=== PATIENT | male | born 1995 | race Caucasian/White ===

== ENCOUNTER 2017-02-18 23:15 | Emergency (ER) | payer BC, OTHER ==
[~2017-02-18] VITALS: Ht 177.8 cm; Wt 77.1 kg
--- NOTE | 2017-02-18 23:56 | ED General ---
General Chief Complaint: Chest Wall/Rib Pain Stated Complaint: CP X 7 DAYS,LEFT ARM PAIN Source of Information: Patient History of Present Illness Time Seen by Provider: 23:25 Initial Comments C/O "CHEST PAINS" X 1 WEEK, BEGAN TONIGHT AROUND 2029 WHILE SITTING--HAD JUST EATEN PIZZA PRIOR TO ONSET OF PAIN TONIGHT C/O "[place]" FOR A COUPLE OF WEEKS STATES ARMS FEEL COOL AND TINGLY STATES HIS RIGHT UPPER LEG HAS BEEN HURTING--ANTERIOR ASPECT OF RIGHT THIGH-- NOT HURTING NOW C/O SHORTNESS OF BREATH/HURTS TO BREATHE OVER BILATERAL BREAST AREA HAS CHRONIC NON-PRODUCTIVE COUGH AND IS UNCHANGED FROM NORMAL WAS SEEN AT [facility] LAST WEEK FOR URI SYMPTOMS--FINISHED UNKNOWN ANTIBIOTIC TODAY (DOXYCYCLINE + PREDNISONE PER MED RECONCILIATION) --STATES THOSE SYMPTOMS ARE GONE NO FEVER, SWEATS OR CHILLS NO SWELLING IN LEGS/ FEET OR PAIN IN CALVES. NO PROLONGED SITTING /TRAVEL, ETC. NO HISTORY OF SIMILAR PCP: [facility] Allergies and Home Medications Allergies Coded Allergies: No Known Drug Allergies (Unverified , 02/19/17) Home Medications Methylprednisolone 4 Mg Tab.ds.pk, 4 MG PO UD, #1 Prescribed by: MAXIMILIAN DUKES on 02/19/17 0103 Pantoprazole Sodium 40 Mg Tablet.dr, 40 MG PO DAILY, #15 Prescribed by: MAXIMILIAN DUKES on 02/19/17 0103 Sucralfate 1 Gm/10 Ml Oral.susp, 1 GM PO QID AC AND HS, #400 Prescribed by: MAXIMILIAN DUKES on 02/19/17 0103 Constitutional: no symptoms reported, No chills, No diaphoresis, No dizziness, No fever EENTM: no symptoms reported, see HPI Respiratory: see HPI, cough, short of breath Cardiovascular: see HPI, chest pain, No edema, No palpitations, No syncope, No vascular heart diseas Gastrointestinal: see HPI, No abdominal pain, No dysphagia, No hematemesis, heartburn, No loss of appetite, No melena, No nausea, No vomiting Genitourinary: no symptoms reported Musculoskeletal: see HPI Skin: no symptoms reported Psychiatric/Neurological: No Symptoms Reported Hematologic/Lymphatic: No Symptoms Reported Immunological/Allergic: no symptoms reported Past Hpyoctx-Yafztg-Glrqil Hx Patient Social History Alcohol Use: Denies Use Recreational Drug Use: No Smoking Status: Current Everyday Smoker (1 /2 PPD) Recent Foreign Travel: No Contact w/Someone Who Travel: No Seasonal Allergies Seasonal Allergies: Yes (ALLERGIES CHILD) Surgeries HX Surgeries: No Respiratory Hx Respiratory Disorders: Yes (ASTHMA CHILD) Respiratory Disorders: Asthma Cardiovascular Hx Cardiac Disorders: No Neurological Hx Neurological Disorders: No Genitourinary Hx Genitourinary Disorders: No Gastrointestinal Hx Gastrointestinal Disorders: No Musculoskeletal Hx Musculoskeletal Disorders: No Endocrine Hx Endocrine Disorders: No HEENT HX ENT Disorders: No Cancer Hx Cancer: No Psychosocial Hx Psychiatric Problems: No Integumentary HX Skin/Integumentary Disorder: No Blood Transfusions Hx Blood Disorders: No Physical Exam Vital Signs Capillary Refill : General Appearance: No Apparent Distress, WD/WN, Other (SMILING, DOES NOT APPEAR TO BE IN ANY DISCOMFORT OR DISTRESS. FILTHY, AND CLOTHING COVERED IN MUD) HEENT: PERRL/EOMI, TMs Normal, Normal ENT Inspection, Pharynx Normal Neck: Full Range of Motion, Normal Inspection, Non Tender, Supple Respiratory: Normal Breath Sounds, No Accessory Muscle Use, No Respiratory Distress, Other (COSTO-STERNAL TENDERNESS--PALPATION REPRODUCES PAIN ) Cardiovascular: Regular Rate, Rhythm, No Edema, No JVD, No Murmur, Normal Peripheral Pulses Gastrointestinal: Normal Bowel Sounds, No Organomegaly, No Pulsatile Mass, Non Tender, Soft Back: Normal Inspection, No CVA Tenderness, No Vertebral Tenderness Extremity: Normal Capillary Refill, Normal Inspection, Normal Range of Motion, Non Tender, No Calf Tenderness, No Pedal Edema Neurologic/Psychiatric: Alert, Oriented x3, No Motor/Sensory Deficits, Normal Mood/Affect, research associate quality control qc II-XII Norm as Tested Skin: Normal Color, Warm/Dry, Tattoos/Piercings (TATTOOS) Progress/Results/Core Measures Results/Orders Lab Results Laboratory Tests Test 02/19/17 00:06 Range/Units White Blood Count 9.5 4.3-11.0 10^3/uL Red Blood Count 4.67 4.35-5.85 10^6/uL Hemoglobin 14.5 13.3-17.7 G/DL Hematocrit 43 40-54 % Mean Corpuscular Volume 91 80-99 FL Mean Corpuscular Hemoglobin 31 25-34 PG Mean Corpuscular Hemoglobin Concent 34 32-36 G/DL Red Cell Distribution Width 13.6 10.0-14.5 % Platelet Count 182 130-400 10^3/uL Mean Platelet Volume 10.2 7.4-10.4 FL Neutrophils (%) (Auto) 52 42-75 % Lymphocytes (%) (Auto) 31 12-44 % Monocytes (%) (Auto) 12 0-12 % Eosinophils (%) (Auto) 5 0-10 % Basophils (%) (Auto) 1 0-10 % Neutrophils # (Auto) 4.9 1.8-7.8 X 10^3 Lymphocytes # (Auto) 2.9 1.0-4.0 X 10^3 Monocytes # (Auto) 1.1 H 0.0-1.0 X 10^3 Eosinophils # (Auto) 0.5 H 0.0-0.3 10^3/uL Basophils # (Auto) 0.1 0.0-0.1 10^3/uL Sodium Level 140 135-145 MMOL/L Potassium Level 3.6 3.6-5.0 MMOL/L Chloride Level 109 H 98-107 MMOL/L Carbon Dioxide Level 22 21-32 MMOL/L Anion Gap 9 5-14 MMOL/L Blood Urea Nitrogen 11 7-18 MG/DL Creatinine 0.83 0.60-1.30 MG/DL Estimat Glomerular Filtration Rate > 60 BUN/Creatinine Ratio 13 Glucose Level 98 70-105 MG/DL Calcium Level 9.3 8.5-10.1 MG/DL Total Bilirubin 0.6 0.1-1.0 MG/DL Aspartate Amino Transf (AST/SGOT) 20 5-34 U/L Alanine Aminotransferase (ALT/SGPT) 23 0-55 U/L Alkaline Phosphatase 62 40-136 U/L Troponin I < 0.30 <0.30 NG/ML B-Type Natriuretic Peptide < 10.0 <100.0 PG/ML Total Protein 6.7 6.4-8.2 G/DL Albumin 4.0 3.2-4.5 G/DL My Orders Orders - MAXIMILIAN DUKES DO Ekg Tracing (02/18/17 23:48) Monitor-Rhythm Ecg Trace Only (02/18/17 23:48) Chest Pa/Lat (2 View) (02/18/17 23:48) BNP (02/18/17 23:52) Cbc With Automated Diff (02/18/17 23:52) Comprehensive Metabolic Panel (02/18/17 23:52) Troponin I (02/18/17 23:52) Progress Note : Progress Note PT SLEPT FOR REMAINDER OF ER STAY NO C/O PAIN OR ANY OTHER SYMPTOMS AT ANY OTHER TIME DURING ENTIRE ER STAY ECG Initial ECG Impression Time: 23:37 Initial ECG Rate: 80 Initial ECG Rhythm: Normal Sinus Initial ECG Comparisson: No Previous ECG Available Diagnostic Imaging Comments CXR--NO ACUTE PROCESS, PENDING RADIOLOGIST REVIEW Reviewed: Reviewed by Me Departure Impression Impression: Primary Impression: Chest wall pain Additional Impression: GERD SYMPTOMS Disposition: 01 HOME, SELF-CARE Condition: Improved Departure-Patient Inst. Referrals: [facility] Patient Instructions: Costochondritis (DC), Acid Reflux (Gastroesophageal Reflux Disease), Adult (DC) Add. Discharge Instructions: NO CAFFEINE STOP SMOKING AVOID SPICY, GREASY/HIGH FAT, ACIDIC FOOD AND DRINKS FOLLOW UP WITH [facility] IN 2-3 DAYS FOR FURTHER CARE All discharge instructions reviewed with patient and/or family. Voiced understanding. Scripts Pantoprazole Sodium (Protonix) 40 Mg Tablet.dr 40 MG PO DAILY, #15 TAB Prov: ERNSTMAXIMILIAN K DO 02/19/17 Methylprednisolone (Medrol) 4 Mg Tab.ds.pk 4 MG PO UD, #1 PKG Prov: MAXIMILIAN DUKES K DO 02/19/17 Sucralfate (Carafate) 1 Gm/10 Ml Oral.susp 1 GM PO QID AC AND HS, #400 ML Prov: ERNSTMAXIMILIAN K DO 02/19/17 ERNSTMAXIMILIAN K February 18, 2017 23:56
[2017-02-19 00:20] LABS: BASOPHILS # (AUTO) 0.1 10^3/uL (0.0-0.1); BASOPHILS % (AUTO) 1 % (0-10); EOSINOPHILS # (AUTO) 0.5 10^3/uL (0.0-0.3); EOSINOPHILS % (AUTO) 5 % (0-10); LYMPHOCYTES # (AUTO) 2.9 X 10^3 (1.0-4.0); LYMPHOCYTES % (AUTO) 31 % (12-44); MEAN CORPUSCULAR HEMOGLOBIN 31 PG (25-34); MEAN CORPUSCULAR HGB CONC 34 G/DL (32-36); MEAN CORPUSCULAR VOLUME 91 FL (80-99); MEAN PLATELET VOLUME 10.2 FL (7.4-10.4); MONOCYTES # (AUTO) 1.1 X 10^3 (0.0-1.0); MONOCYTES % (AUTO) 12 % (0-12); NEUTROPHILS # (AUTO) 4.9 X 10^3 (1.8-7.8); NEUTROPHILS % (AUTO) 52 % (42-75); PLATELET COUNT 182 10^3/uL (130-400); RED BLOOD COUNT 4.67 10^6/uL (4.35-5.85); RED CELL DISTRIBUTION WIDTH 13.6 % (10.0-14.5); WHITE BLOOD COUNT 9.5 10^3/uL (4.3-11.0)
[2017-02-19 00:34] LABS: ALANINE AMINOTRANSFERASE 23 U/L (0-55); ANION GAP 9 MMOL/L (5-14); ASPARTATE AMINO TRANSFERASE 20 U/L (5-34); BILIRUBIN,TOTAL 0.6 MG/DL (0.1-1.0); BLOOD UREA NITROGEN 11 MG/DL (7-18); BUN/CREATININE RATIO 13; CALCIUM 9.3 MG/DL (8.5-10.1); CARBON DIOXIDE 22 MMOL/L (21-32); CHLORIDE 109 MMOL/L (98-107); CREATININE SERUM 0.83 MG/DL (0.60-1.30); GFR ESTIMATED > 60; GLUCOSE 98 MG/DL (70-105); POTASSIUM 3.6 MMOL/L (3.6-5.0); SODIUM 140 MMOL/L (135-145); TOTAL PROTEIN 6.7 G/DL (6.4-8.2)
[2017-02-19 00:40] LABS: TROPONIN I < 0.30 NG/ML (<0.30)
[2017-02-19] MEDS ORDERED: SUCR1ORA5 PO (01:03)
[2017-02-19] MEDS ORDERED: METH4TAB PO (01:03)
[2017-02-19] MEDS ORDERED: PANT40TA2 PO (01:03)
[2017-02-19 01:11] VITALS: BP 125/78
--- NOTE | 2017-02-19 08:04 | Diagnostic Imaging Report ---
INDICATION: Chest pain. FINDINGS: The lungs are clear. The heart and vessels are normal. There is no effusion or pneumothorax. IMPRESSION: Negative. Dictated by: Dictated on workstation # [id number]
== END 2017-02-19 01:11 | disposition home or self-care (01) ==
LOC: EDUNIT# 23:15 → ER 23:42
DX: R07.89 Other chest pain (principal); K21.9 Gastro-esophageal reflux disease without esophagitis; F17.210 Nicotine dependence, cigarettes, uncomplicated
CPT/HCPCS: 36415; 71020; 80053; 83880; 84484; 85025; 93005